=== PATIENT | female | born 2005 ===

== ENCOUNTER 2024-02-05 10:46 | Emergency (ER) | payer OTHER, SELFPAY ==
[2024-02-05] MEDS ORDERED: Ondansetron ODT 4 MG TAB ONE (11:30)
[2024-02-05 12:39] LABS: Bilirubin Negative (Negative); Blood, Urine Negative (Negative); CAUTI Indications for Culture Dysuria,urgency,freq; Clarity Clear (Clear); Glucose, Urine (Dipstick) Normal (Negative); Ketone, Urine Negative (Negative); Leukocyte Negative Leu/uL (Negative); Nitrite Negative (Negative); Protein, Urine (Dipstick) 10 mg/dL (Neg-Trace); RBC/HPF 0-3 HPF (0-3); Specific Gravity, Urine 1.022 (1.002-1.036); Urobilinogen Normal mg/dL (Less than 2); WBC/HPF 0-3 HPF (0-3); pH, Urine 6.5 (5.0-9.0)
[2024-02-05 12:40] LABS: Pregnancy Test - Urine (BHCG) Negative (Negative); Pregu Control Background? CLEAR/WHITE (CLR/WHITE); Pregu Control Bar Appear? YES (CONTROL BAR); Specific Gravity 1.022 (1.002-1.036)
[2024-02-05 12:48] LABS: Bacteria/HPF 1+ HPF (None Seen)
[2024-02-05 12:49] LABS: Urine Culture Reflex No No
[2024-02-05] MEDS ORDERED: Ibuprofen 200 MG TAB ONE (12:58)
[2024-02-05 19:17] LABS: Chlamydia by PCR, Vaginal Swab Not Detected (NotDetected); GC by PCR, Vaginal Swab Not Detected (NotDetected)
== END 2024-02-05 13:15 | disposition home or self-care (01) ==
LOC: ERS 10:46
DX: R82.71 Bacteriuria (principal); R11.2 Nausea with vomiting, unspecified
CPT/HCPCS: 81001; 81025; 87480; 87491; 87510; 87591; 87660; 99283; Q0162